=== PATIENT | female | born 1970 | race Caucasian/White ===

== ENCOUNTER → 2016-05-26 | Outpatient (CLI) | payer OTHER ==
[~2016-05-26] MED LIST: CLARITIN10 MG PO; IBUPROFEN600 MG PO; IMITREX TAB 2525 MG PO; MELATONIN5 MG PO; MIRALAX17 GM PO; NORCO 5-325 TA1 EACH PO; PROTONIX 40 MG40 M1 PO
[2016-05-26 11:37] LABS: RED BLOOD COUNT 4.87 M/UL (4.00-5.10); WHITE BLOOD COUNT 8.6 K/UL (4.5-11.0)
== END ==
LOC: OPSV2 08:00
PROVIDERS: Obstetrics & Gynecology
DX: Z01.812 Encounter for preprocedural laboratory examination (principal); N93.9 Abnormal uterine and vaginal bleeding, unspecified
CPT/HCPCS: 36415; 81001; 85025

== ENCOUNTER → 2016-05-30 | Day surgery (SDC) | payer OTHER | END | disposition home or self-care (01) | LOC: OR 06:28 | PROVIDERS: Obstetrics & Gynecology | PROC: 0U5B8ZZ Destruction of Endometrium, Via Natural or Artificial Opening Endoscopic (ICD-10-PCS; principal; 2016-05-30 08:00) | DX: N92.0 Excessive and frequent menstruation with regular cycle (principal); R93.8 Abnormal findings on diagnostic imaging of other specified body structures; K59.00 Constipation, unspecified; G43.909 Migraine, unspecified, not intractable, without status migrainosus; G47.00 Insomnia, unspecified; G89.29 Other chronic pain; M19.90 Unspecified osteoarthritis, unspecified site; M54.9 Dorsalgia, unspecified; Z83.3 Family history of diabetes mellitus; Z79.899 Other long term (current) drug therapy; Z90.49 Acquired absence of other specified parts of digestive tract; Z98.51 Tubal ligation status; Z98.890 Other specified postprocedural states | CPT/HCPCS: J1885; J2250; J2405; J2795; J7030; J7120 ==

== ENCOUNTER → 2021-08-28 | Outpatient (CLI) | payer BC ==
[2021-08-29 16:12] LABS: ENDOMYSIAL ANTIBODY IGA Negative (Negative); IMMUNOGLOBULIN A, QN, SERUM 204 mg/dL (87-352); T-TRANSGLUTAMINASE (TTG) IGA <2 U/mL (0-3)
== END ==
LOC: NM 09:00
PROVIDERS: Physician Assistant Surgical
DX: R10.13 Epigastric pain (principal); R11.0 Nausea
CPT/HCPCS: 36415; 78264; 82784; A9541

== ENCOUNTER 2021-11-27 17:24 | Emergency (ER) | payer BC ==
[2021-11-27 18:17] LABS: HEMOGLOBIN 15.3 gm/dl (12.3-15.3); RED BLOOD COUNT 5.29 M/UL (4.00-5.10); WHITE BLOOD COUNT 9.9 K/UL (4.5-11.0)
[2021-11-27] MEDS ORDERED: LOPRESSOR50 MG PO (18:19)
[2021-11-27 18:45] LABS: BUN/CREATININE RATIO 11 (0-10)
== END 2021-11-27 17:31 | disposition home or self-care (01) ==
LOC: ER1 17:24
PROVIDERS: Emergency Medicine
DX: I47.1 Supraventricular tachycardia (principal)
CPT/HCPCS: 80053; 82550; 82553; 83735; 84439; 84443; 84484; 85025; 93005; 99285; J0153